=== PATIENT | male | born 1965 | race Caucasian/White ===

== ENCOUNTER 2020-10-23 13:16 | Emergency (ER) | payer MEDICAID, OTHER ==
[~2020-10-23] VITALS: Ht 180.3 cm; Wt 106.6 kg
[2020-10-23] MEDS ORDERED: FUROSEMIDE 40 MG/4 ML VIAL IV ONE (13:30)
[2020-10-23 14:40] LABS: Albumin 3.4 g/dL (3.4-5.0); Calcium 8.3 mg/dL (8.5-10.1); Magnesium 2.3 mg/dL (1.6-2.6); Potassium 4.1 mmol/L (3.5-5.1)
[2020-10-23 14:45] LABS: BUN/Creatinine Ratio 15.2; Bilirubin, Total 0.4 mg/dL (0.2-1.0); Total Protein 7.8 g/dL (6.4-8.2)
[2020-10-23 14:51] LABS: Basophils # (auto) 0.1 10 ^3/uL (0-0.2); Basophils % (auto) 0.9 % (0.0-2.0); Eosinophils # (auto) 0.2 10 ^3/uL (0-0.8); Eosinophils % (auto) 3.1 % (0.0-7.0); Hematocrit 48.6 % (41.0-53.0); Hemoglobin 16.7 g/dL (13.5-17.5); Lymphocytes # (auto) 2.3 10 ^3/uL (0.4-5.4); Lymphocytes % (auto) 31.7 % (10.0-50.0); Mean Corpuscular Hemoglobin 32.9 pg (28.0-32.0); Mean Corpuscular Hgb Conc. 34.4 g/dL (32.0-36.0); Mean Corpuscular Volume 95.5 fL (80.0-100.0); Monocytes # (auto) 0.7 10 ^3/uL (0-1.3); Monocytes % (auto) 9.1 % (0.0-12.0); Neutrophils % (auto) 55.2 % (37.0-80.0); Nucleated Red Blood Cells % 0.6 %; Platelet Count (auto) 193 10^3/uL (140-450); Red Blood Cells 5.09 10^6/uL (4.5-5.90); Red Cell Distribution Width 14.7 % (11.8-14.3); White Blood Cell 7.3 10^3/uL (4.4-10.8)
[2020-10-23] MEDS ORDERED: POTASSIUM EFFERVESENT TAB 25 MEQ PO ONE (17:45)
[2020-10-23] MEDS ORDERED: FUROSEMIDE 40 MG TAB PO ONE (17:45)
[2020-10-23] MEDS ORDERED: ALBUTEROL SULF 2.5 MG/0.5ML(0.5%) NEB SOLN NEB PRN (17:45)
[2020-10-23] MEDS ORDERED: NITROGLYCERIN 0.4 MG SL TAB SL PRN (17:45)
[2020-10-23] MEDS ORDERED: LABETALOL HCL 5 MG/ML 4ML SYRINGE IV PRN (17:45)
[2020-10-23] MEDS ORDERED: MORPHINE SULF INJ 2 MG/ML SYRINGE 1ML IV PRN ×2 (17:45)
[2020-10-23] MEDS ORDERED: ONDANSETRON HCL 4 MG/2 ML VIAL IV PRN (17:45)
[2020-10-23] MEDS ORDERED: LORazepam 0.5 MG TAB PO PRN (17:45)
[2020-10-23] MEDS ORDERED: DOCUSATE CALCIUM 240 MG CAP PO PRN (17:45)
[2020-10-23] MEDS ORDERED: ACETAMINOPHEN 500 MG TAB PO PRN (17:45)
[2020-10-23] MEDS ORDERED: BUDESONIDE (INHALATION) 0.5 MG/2 ML NEB NEB SCH (22:00)
[2020-10-23 23:18] VITALS: BP 149/87
[2020-10-24] MEDS ORDERED: PANTOPRAZOLE 40 MG TAB PO SCH (10:00)
[2020-10-24] MEDS ORDERED: ENOXAPARIN SOD 40 MG/0.4 ML SYRINGE SC SCH (10:00)
== END 2020-10-24 00:40 | disposition left against medical advice (07) ==
LOC: ER 13:16 → TELE 17:51 → UNDOADMIN 17:51 → TELE 23:59 → TELE-CENTR 23:59 → ER 10-24 00:40
DX: I11.0 Hypertensive heart disease with heart failure (principal); I50.33 Acute on chronic diastolic (congestive) heart failure; I24.9 Acute ischemic heart disease, unspecified; R74.8 Abnormal levels of other serum enzymes; R51.9 Headache, unspecified; R07.9 Chest pain, unspecified
CPT/HCPCS: 36415; 71046; 71250; 74176; 80053; 83735; 83880; 84484; 85025; 85379; 94640; 96374; 99291; J1940; G0378

== ENCOUNTER 2021-07-17 06:14 | Inpatient (IN) | payer MEDICAID ==
[~2021-07-17] VITALS: Ht 175.3 cm; Wt 123.2 kg
[2021-07-17 07:37] LABS: Basophils # (auto) 0 10 ^3/uL (0-0.2); Basophils % (auto) 0.3 % (0.0-2.0); Eosinophils # (auto) 0.2 10 ^3/uL (0-0.8); Eosinophils % (auto) 3.8 % (0.0-7.0); Hematocrit 45.3 % (41.0-53.0); Hemoglobin 14.9 g/dL (13.5-17.5); Lymphocytes # (auto) 1.3 10 ^3/uL (0.4-5.4); Lymphocytes % (auto) 23.5 % (10.0-50.0); Mean Corpuscular Hemoglobin 32.3 pg (28.0-32.0); Mean Corpuscular Hgb Conc. 32.9 g/dL (32.0-36.0); Mean Corpuscular Volume 98.1 fL (80.0-100.0); Monocytes # (auto) 0.5 10 ^3/uL (0-1.3); Monocytes % (auto) 8.8 % (0.0-12.0); Neutrophils # (auto) 3.4 10 ^3/uL (1.6-8.6); Neutrophils % (auto) 63.6 % (37.0-80.0); Nucleated Red Blood Cells % 0.1 %; Red Blood Cells 4.62 10^6/uL (4.5-5.90); Red Cell Distribution Width 14.1 % (11.8-14.3); White Blood Cell 5.3 10^3/uL (4.4-10.8)
[2021-07-17 07:54] LABS: Calcium 8.4 mg/dL (8.5-10.1); Magnesium 1.7 mg/dL (1.6-2.6); Potassium 4.1 mmol/L (3.5-5.1)
[2021-07-17 07:56] LABS: BUN/Creatinine Ratio 11.6
[2021-07-17 07:59] LABS: Bilirubin, Total 0.5 mg/dL (0.2-1.0); Total Protein 6.9 g/dL (6.4-8.2)
[2021-07-17] MEDS ORDERED: SODIUM CHLORIDE 0.9% 1,000 ML IV ONE (11:15)
[2021-07-17] MEDS ORDERED: LABETALOL HCL 5 MG/ML 4ML SYRINGE IV ONE (11:15)
[2021-07-17] MEDS ORDERED: ASPirin 81 mg TAB PO ONE ×2 (11:15→13:15)
[2021-07-17 12:06] LABS: INR 1.03 (0.9-1.15); Partial Thromboplastin Time 27.5 sec (23.6-33.0)
[2021-07-17] MEDS ORDERED: ENOXAPARIN SOD 80 MG/0.8ML SYRINGE SC ONE (12:30)
[2021-07-17] MEDS ORDERED: METOPROLOL SUCCINATE XL 50 MG TAB PO ONE (13:15)
[2021-07-17] MEDS ORDERED: SODIUM CHLORIDE 0.9% 1,000 ML IV SCH (13:15)
[2021-07-17] MEDS ORDERED: ACETAMINOPHEN 325 MG TAB PO PRN (13:15)
[2021-07-17] MEDS ORDERED: DOCUSATE SOD 100 MG CAP PO PRN (13:15)
[2021-07-17] MEDS ORDERED: HYDROcodone-ACET 5/325MG TAB PO PRN (13:15)
[2021-07-17] MEDS ORDERED: ONDANSETRON HCL 4 MG/2 ML VIAL IV PRN (13:15)
[2021-07-17] MEDS ORDERED: MORPHINE SULFATE INJECTION 2 MG/ML SYRG IV PRN ×2 (13:15)
[2021-07-17] MEDS ORDERED: NITROGLYCERIN 0.4 MG SL TAB SL PRN (13:15)
[2021-07-17] MEDS ORDERED: LORazepam 0.5 MG TAB PO PRN (13:15)
[2021-07-17 13:19] LABS: Urine Bacteria FEW /hpf (None Seen); Urine Blood Negative /uL (Negative); Urine Hyaline Cast FEW /lpf (0 - 2); Urine Mucus FEW (None Seen); Urine Specific Gravity 1.025 (1.001-1.035); Urine WBC 1 /hpf (0 - 3)
[2021-07-17] MEDS ORDERED: DEXTROSE (50%) 50ML SYRG IV PRN (14:00)
[2021-07-17 15:03] LABS: Cholesterol 115 mg/dL (< 200); HDL Cholesterol 39 mg/dL (40-59); LDL Cholesterol 66 mg/dL (< 100); Triglycerides 105 mg/dL (< 150)
[2021-07-17] MEDS: ACCU-CHEK COMFORT CURVE STRIP VI SCH (18:18)
[2021-07-17] MEDS: FUROSEMIDE 40 MG/4 ML VIAL IV SCH (18:25)
[2021-07-17] MEDS: InsuLIN REG 1unit/0.01ml Soln (100units/ml) SC SCH (18:27)
[2021-07-17] MEDS: ENOXAPARIN SOD 80 MG/0.8ML SYRINGE SC SCH (22:30)
[2021-07-17] MEDS: CARVEDILOL 3.125 MG TAB PO SCH (22:30)
[2021-07-17 22:50] VITALS: BP 142/97
[2021-07-18] MEDS ORDERED: IBUP600T27 PO (02:09)
[2021-07-18] MEDS ORDERED: ALBU108A5 IN (02:09)
[2021-07-18] MEDS ORDERED: KETO2CRE4 TOP (02:09)
[2021-07-18] MEDS ORDERED: CARV6.2551 PO (02:09)
[2021-07-18] MEDS ORDERED: FURO20TA3 PO (02:09)
[2021-07-18] MEDS ORDERED: LISI40TA11 PO (02:09)
[2021-07-18 05:00] VITALS: BP 143/79
[2021-07-18] MEDS: InsuLIN REG 1unit/0.01ml Soln (100units/ml) SC SCH ×4 (06:00→18:00)
[2021-07-18] MEDS: ACCU-CHEK COMFORT CURVE STRIP VI SCH ×4 (06:26→18:16)
[2021-07-18] MEDS: FUROSEMIDE 40 MG/4 ML VIAL IV SCH (06:27)
[2021-07-18 09:30] VITALS: BP 144/77
[2021-07-18] MEDS ORDERED: LISINOPRIL 5 MG TAB PO ONE (10:00)
[2021-07-18] MEDS ORDERED: OPTISON 3ml Vial for INJ IV ONE (10:45)
[2021-07-18] MEDS ORDERED: FUROSEMIDE 40 MG/4 ML VIAL IV SCH (11:15)
[2021-07-18 12:00] VITALS: BP 125/73
[2021-07-18 12:29] LABS: Basophils # (auto) 0 10 ^3/uL (0-0.2); Basophils % (auto) 0.6 % (0.0-2.0); Eosinophils # (auto) 0.1 10 ^3/uL (0-0.8); Hematocrit 47.5 % (41.0-53.0); Hemoglobin 15.9 g/dL (13.5-17.5); Lymphocytes # (auto) 1.2 10 ^3/uL (0.4-5.4); Lymphocytes % (auto) 28.6 % (10.0-50.0); Mean Corpuscular Hemoglobin 32.8 pg (28.0-32.0); Mean Corpuscular Hgb Conc. 33.5 g/dL (32.0-36.0); Mean Corpuscular Volume 98.1 fL (80.0-100.0); Monocytes # (auto) 0.5 10 ^3/uL (0-1.3); Monocytes % (auto) 11.9 % (0.0-12.0); Neutrophils # (auto) 2.4 10 ^3/uL (1.6-8.6); Neutrophils % (auto) 55.9 % (37.0-80.0); Nucleated Red Blood Cells % 0.1 %; Red Blood Cells 4.84 10^6/uL (4.5-5.90); White Blood Cell 4.2 10^3/uL (4.4-10.8)
[2021-07-18 12:45] LABS: BUN/Creatinine Ratio 12.6; Calcium 9.1 mg/dL (8.5-10.1); Potassium 4.2 mmol/L (3.5-5.1)
[2021-07-18 12:49] LABS: Bilirubin, Total 0.6 mg/dL (0.2-1.0); Total Protein 7.1 g/dL (6.4-8.2)
[2021-07-18] MEDS: ATORVASTATIN 20 MG TAB PO SCH (13:01)
[2021-07-18] MEDS: ENOXAPARIN SOD 80 MG/0.8ML SYRINGE SC SCH ×2 (13:01→22:59)
[2021-07-18] MEDS: LISINOPRIL 20 MG TAB PO SCH (13:01)
[2021-07-18] MEDS: CARVEDILOL 3.125 MG TAB PO SCH ×2 (13:01→22:59)
[2021-07-18 20:00] VITALS: BP 135/79
[2021-07-18 22:00] VITALS: BP 135/78
[2021-07-19 05:00] VITALS: BP 127/65
[2021-07-19] MEDS: InsuLIN REG 1unit/0.01ml Soln (100units/ml) SC SCH ×5 (06:00→23:18)
[2021-07-19] MEDS: ACCU-CHEK COMFORT CURVE STRIP VI SCH ×5 (06:00→23:35)
[2021-07-19 07:22] LABS: Potassium 4.3 mmol/L (3.5-5.1)
[2021-07-19 07:30] LABS: Basophils # (auto) 0 10 ^3/uL (0-0.2); Basophils % (auto) 0.8 % (0.0-2.0); Eosinophils # (auto) 0.2 10 ^3/uL (0-0.8); Eosinophils % (auto) 3.1 % (0.0-7.0); Hematocrit 46.6 % (41.0-53.0); Hemoglobin 15.8 g/dL (13.5-17.5); Lymphocytes % (auto) 38.7 % (10.0-50.0); Mean Corpuscular Hemoglobin 33.1 pg (28.0-32.0); Mean Corpuscular Volume 97.4 fL (80.0-100.0); Monocytes # (auto) 0.5 10 ^3/uL (0-1.3); Monocytes % (auto) 10.5 % (0.0-12.0); Neutrophils # (auto) 2.4 10 ^3/uL (1.6-8.6); Neutrophils % (auto) 46.9 % (37.0-80.0); Nucleated Red Blood Cells % 0.1 %; Red Blood Cells 4.79 10^6/uL (4.5-5.90); Red Cell Distribution Width 14.1 % (11.8-14.3); White Blood Cell 5.2 10^3/uL (4.4-10.8)
[2021-07-19 07:36] LABS: BUN/Creatinine Ratio 15.5
[2021-07-19 07:38] LABS: Total Protein 7.2 g/dL (6.4-8.2)
[2021-07-19 08:45] VITALS: BP 121/80
[2021-07-19] MEDS: FUROSEMIDE 40 MG/4 ML VIAL IV SCH (09:08)
[2021-07-19] MEDS: CARVEDILOL 3.125 MG TAB PO SCH ×2 (09:08→21:51)
[2021-07-19] MEDS: ATORVASTATIN 20 MG TAB PO SCH (09:08)
[2021-07-19] MEDS: LISINOPRIL 20 MG TAB PO SCH (09:09)
[2021-07-19] MEDS: ENOXAPARIN SOD 80 MG/0.8ML SYRINGE SC SCH ×2 (09:09→21:51)
[2021-07-19 12:15] VITALS: BP 103/81
[2021-07-19] MEDS: FLUTICASONE PROP NASAL SPR 0.05 % (50MCG) 16GM EACHNOSTRI SCH ×2 (12:30→21:51)
[2021-07-19 18:05] VITALS: BP 135/94
[2021-07-19 21:00] VITALS: BP 128/81
[2021-07-20 05:00] VITALS: BP 154/78
[2021-07-20] MEDS: InsuLIN REG 1unit/0.01ml Soln (100units/ml) SC SCH ×3 (05:20→16:48)
[2021-07-20] MEDS: ACCU-CHEK COMFORT CURVE STRIP VI SCH ×3 (05:20→16:48)
[2021-07-20 07:55] LABS: Basophils # (auto) 0.1 10 ^3/uL (0-0.2); Basophils % (auto) 1.3 % (0.0-2.0); Eosinophils # (auto) 0.2 10 ^3/uL (0-0.8); Eosinophils % (auto) 3.5 % (0.0-7.0); Hematocrit 49.5 % (41.0-53.0); Hemoglobin 16.6 g/dL (13.5-17.5); Lymphocytes # (auto) 1.7 10 ^3/uL (0.4-5.4); Lymphocytes % (auto) 32.7 % (10.0-50.0); Mean Corpuscular Hemoglobin 32.5 pg (28.0-32.0); Mean Corpuscular Hgb Conc. 33.5 g/dL (32.0-36.0); Mean Corpuscular Volume 97.1 fL (80.0-100.0); Monocytes # (auto) 0.7 10 ^3/uL (0-1.3); Monocytes % (auto) 12.5 % (0.0-12.0); Neutrophils # (auto) 2.7 10 ^3/uL (1.6-8.6); Nucleated Red Blood Cells % 0.2 %; Red Cell Distribution Width 13.8 % (11.8-14.3); White Blood Cell 5.3 10^3/uL (4.4-10.8)
[2021-07-20 08:12] LABS: Albumin 3.3 g/dL (3.4-5.0); Calcium 9.3 mg/dL (8.5-10.1); Potassium 4.3 mmol/L (3.5-5.1)
[2021-07-20 08:16] LABS: BUN/Creatinine Ratio 18.7; Bilirubin, Total 0.9 mg/dL (0.2-1.0); Total Protein 7.4 g/dL (6.4-8.2)
[2021-07-20 08:25] VITALS: BP 125/79
[2021-07-20] MEDS: CARVEDILOL 3.125 MG TAB PO SCH ×2 (09:14→22:23)
[2021-07-20] MEDS: FUROSEMIDE 40 MG/4 ML VIAL IV SCH (09:14)
[2021-07-20] MEDS: LISINOPRIL 20 MG TAB PO SCH (09:15)
[2021-07-20] MEDS: ENOXAPARIN SOD 80 MG/0.8ML SYRINGE SC SCH ×2 (09:15→22:11)
[2021-07-20] MEDS: FLUTICASONE PROP NASAL SPR 0.05 % (50MCG) 16GM EACHNOSTRI SCH ×2 (09:15→22:24)
[2021-07-20] MEDS: ATORVASTATIN 20 MG TAB PO SCH (10:00)
[2021-07-20 12:15] VITALS: BP 106/76
[2021-07-20 14:25] VITALS: BP 97/66
[2021-07-20 22:00] VITALS: BP 88/68
[2021-07-21 05:00] VITALS: BP 98/64
[2021-07-21] MEDS: InsuLIN REG 1unit/0.01ml Soln (100units/ml) SC SCH ×3 (06:00→12:00)
[2021-07-21] MEDS: ACCU-CHEK COMFORT CURVE STRIP VI SCH ×3 (06:20→12:00)
[2021-07-21 09:00] VITALS: BP 111/76
[2021-07-21] MEDS: FUROSEMIDE 40 MG/4 ML VIAL IV SCH (10:00)
[2021-07-21] MEDS: ENOXAPARIN SOD 80 MG/0.8ML SYRINGE SC SCH (10:00)
[2021-07-21] MEDS: ATORVASTATIN 20 MG TAB PO SCH (10:00)
[2021-07-21] MEDS: FLUTICASONE PROP NASAL SPR 0.05 % (50MCG) 16GM EACHNOSTRI SCH (10:00)
[2021-07-21 11:00] VITALS: BP 104/72
[2021-07-21 12:00] VITALS: BP 118/80
[2021-07-21 13:29] VITALS: BP 104/72
[2021-07-21 16:37] VITALS: BP 153/76
== END 2021-07-21 17:40 | disposition home or self-care (01) | DRG 190 ==
LOC: ER 06:14 → TELE 13:11 → TELE-WESTW 22:44
PROVIDERS: ADMIT Family Medicine; ATTEND Family Medicine
DX: I21.4 Non-ST elevation (NSTEMI) myocardial infarction (principal); I50.33 Acute on chronic diastolic (congestive) heart failure; E44.0 Moderate protein-calorie malnutrition; E11.65 Type 2 diabetes mellitus with hyperglycemia; I11.0 Hypertensive heart disease with heart failure; E66.01 Morbid (severe) obesity due to excess calories; Z68.41 Body mass index [BMI] 40.0-44.9, adult; E78.00 Pure hypercholesterolemia, unspecified; Z20.822 Contact with and (suspected) exposure to COVID-19; J45.909 Unspecified asthma, uncomplicated; Z82.49 Family history of ischemic heart disease and other diseases of the circulatory system; Z59.00 Homelessness unspecified
CPT/HCPCS: 36415; 71045; 80053; 80061; 81001; 82962; 83036; 83735; 83880; 84443; 84484; 85025; 85610; 85730; 87426; 93005; 93306; 96361; 96372; 96374; G0378; J1815; J3490; Q9956